=== PATIENT | male | born 1960 | race Caucasian/White ===

== ENCOUNTER 2024-03-30 08:56 | Outpatient (AMB) | payer OTHER, SELFPAY ==
--- NOTE | 2024-03-30 09:02 | A.SPINEOV_ITS ---
Vital Signs 03/30/24 09:09 Height 6 ft 6 in Weight 240 lb BMI 27.7 Intake Visit Reasons: Lumbar radiculopathy/weakness Intake Note: Mr. Villanueva is here today c/o Left leg pain radiates down to the knee. 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 He is a very nice 64-year-old gentleman presents to the office today for evaluation of a lumbar radiculopathy. He tells me that sometime in late December he was vacuuming and felt a severe back pain. A week or 2 later when he was making his bed it started again and this time gave him severe pain down his left leg. Speci fically radiating from his back down to his anterior thigh into his knee. He has tingling along the anterior aspect of his tibial region as well. The thing that became very pronounced was that he felt a abrupt weakness in his left leg. Specifically, his leg would give out on him when walking, and doing simple things like trying to lift his leg getting into the car he was unable to complete. The weakness has not changed or gotten worse since it originally started. He ultimately underwent an MRI that he had to pay for himself because insurance would not reimburse it. That showed herniated disc on the left at L3- 4 compressing the left L4 nerve root. He was referred to your office and underwent a left L3 transforaminal injection and that helped the back pain slightly but the leg pain and the weakness stayed the same. He was trialed on Motrin, gabapentin and Tylenol. He takes this cocktail routinely throughout the day and it does seem take the edge off a little bit but does not take the pain away completely. He had to start working from home because of the pain in the weakness. 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 He is very frustrated with his quality of life. He can not even do something simple like mowing the lawn. He is barely sleeping at this point only getting an hour to a night and he has to get up and move around before he can get back to sleep for another hour or 2. He has been repeating this process now for months. He is here today for surgical evaluation. PMH: He is history of hypertension, high cholesterol, recently diagnosed with a AAA that was 3.5 cm. He has a history of a renal cyst. Denies any history of heart disease, strokes, bleeding disorders, lung problems. He does smoke but has never had any issues COPD shortness of breath. Social hx: He smokes a little less than a pack a day, no alcohol or recreational drugs Medications: He takes baby aspirin, rosuvastatin and an antihypertensive which he could not remember the name. Allergies: None Physical exam: Has atrophy of the left leg specifically the quadriceps, he walks with an antalgic gait using a cane as a precaution because of his falls. He was unable to use his leg to step up a stool to get on the examining table. He has about 1 to 2/5 function of the left quadriceps. There is also some mild iliopsoas weakness as well. He has absent patellar reflex on the left. Patellar reflex on the right and the Achilles reflexes are all intact. Imaging review: Patient is a lumbar MRI done at the [facility] in February of 2024 showing disc degeneration, on the left at L3-4 there is a broad-based disc bulge causing significant narrowing of the lateral recess and compressing the left L4 nerve root. There are no other significant findings that I can see. Impression: 64-year-old male presents with what sounds like an L4 radiculopathy secondary to the broad-based disc herniation seen on the left at L3-4 on his imaging done last month. He has had severe pain going on now for a few months or more as well as a severe weakness in his left quadriceps with an absent patellar reflex. There is also atrophy of the quadriceps as well. The weakness started relatively early on in the process but has not gotten worse. It also has not improved at all either. He has not yet started physical therapy but is due to start in a few weeks to see if he can try to restrengthen it. I explained to him that he likely has nerve damage, and that the weakness in his quadriceps will likely be permanent with or without surgery. The indication for surgery here would be the leg pain. He still continues to meraz with severe pain, he is taking Tylenol, Motrin and gabapentin to try to get through the day. He still can not do normal things because of the pain and discomfort. He is unable to complete basic household tasks such as mowing his lawn and even going up and down the stairs is extremely painful. He has not sleeping much at all either. I told him that this is something Dr. Steven would usually offer left L3-4 microdiskectomy. We discussed the procedure at length. I will get back to the patient after I have a chance to review the imaging with Dr. Steven but I have tentatively put him on for April 19. Pt was given risk and benefits of surgery including but not limited to infection, hematoma , nerve injury,durotomy, weakness,bowel/bladder injury, persistent pain, persistent weakness, recurrent disc herniation as well as the option to continue with conservative treatment and patient wishes to proceed with surgery. Pt is aware they should stop their motrin, aspirin 7 days prior to surgery. All questions were answered to the best of our ability. If there is anything about this patients medical history that we have overlooked or concerns you have about us proceeding with surgery we would appreciate any input you can offer. Thank you for allowing us to care for your patient. The total time spent with this visit with this patient was 45 minutes reviewing history, physical exam, lumbar imaging review, and implementation of treatment plan or further diagnostic testing Endy Steven MD,PhD [facility] Coding Level of Care Code New Pt Level 4 (80505) Diagnoses Lumbar disc herniation M51.26
[2024-03-30 09:09] VITALS: BMI 27.7
== END 2024-03-30 10:14 | disposition home or self-care (01) ==
PROVIDERS: PCP Physician Assistant Medical; Referring Provider Physician Assistant; Visit Provider Physician Assistant
DX: M51.26 Other intervertebral disc displacement, lumbar region (principal)
CPT/HCPCS: 99204

== ENCOUNTER → 2024-03-30 08:56 | Outpatient (BNVA) | payer OTHER, SELFPAY | PROVIDERS: PCP Physician Assistant Medical; Visit Provider Physician Assistant ==

== ENCOUNTER → 2024-04-10 11:05 | Outpatient (BNV) | payer OTHER, SELFPAY | PROVIDERS: PCP Family Medicine; Visit Provider Internal Medicine Cardiovascular Disease | DX: Z01.810 Encounter for preprocedural cardiovascular examination (principal) | CPT/HCPCS: 93010 ==

== ENCOUNTER 2024-04-19 06:50 | Day surgery (SDC) | payer OTHER, SELFPAY ==
--- NOTE | 2024-04-10 | ECG_ITS ---
Test Reason : PRE OP Blood Pressure : / mmHG Vent. Rate : 099 BPM Atrial Rate : 099 BPM P-R Int : 158 ms QRS Dur : 098 ms QT Int : 350 ms P-R-T Axes : 073 086 047 degrees QTc Int : 449 ms Normal sinus rhythm Normal ECG No previous ECGs available Referred By: Caitlyn Alvarez Electronically Signed By:Fercho Santacruz
[2024-04-10 10:08] VITALS: BP 149/78; PULSE 97; RESP 20; O2SAT 98; BMI 26.3
--- NOTE | 2024-04-10 10:20 | HO.ANESPROP2 ---
HPI - Anesthesia Eval Consult details Narrative: 64yo M for L3-4 MicroLumbar discectomy, 04/19/24 No recent illness No CP/SOB within limits of pain. Prior to disc issues (12/2023) no limits with yardwork, walking AAA - incidental finding on MRI. Monitored by PCP. 3.5cm by US 03/2024 [facility] Active Problems Active Problems: All Active Problems Lumbar disc herniation (Acute) Past Medical History Medical History Heartburn Renal cyst AAA (abdominal aortic aneurysm) Elevated cholesterol HTN (hypertension) Lumbar radiculopathy Family History Family history of problems with anesthesia: No Surgical History Surgical History No pertinent past surgical history History of Problems with Anesthesia: No (No previous anesthesia) Social History Social History Are you a primary healthcare advisory services manager to a significant other at home: No Do you presently have visiting nurse or other home services: No Comment: counts correct Patient Tobacco Use Status: Current everyday Tobacco user Tobacco use type: Cigarette Cigarettes Per Day: 12 Years Smoked: 49 Meds Allergies Allergy/AdvReac Type Severity Reaction Status Date / Time No Known Allergies Allergy Verified 04/19/24 07:22 Home Medications ?Medication ?Instructions ?Recorded ?Confirmed ?Last Taken ?Type aspirin 81 mg tablet,delayed 81 mg PO DAILY 04/09/24 04/10/24 04/05/24 History release losartan 50 mg tablet 50 mg PO QAM 04/09/24 04/10/24 Unknown History omeprazole 20 mg capsule,delayed 20 mg PO TID PRN Heartburn 04/09/24 04/10/24 04/19/24 05:00 History release rosuvastatin 20 mg tablet 20 mg PO QAM 04/09/24 04/10/24 Unknown History vit C 250 mg-vit E 90 mg-zinc 40 1 tab PO BID 04/09/24 04/10/24 Unknown History mg-copper 1 [id number] capsule (PreserVision AREDS-2) acetaminophen 500 mg tablet 1,000 mg PO QID 04/10/24 04/10/24 Unknown History gabapentin 100 mg capsule 100 mg PO BID 04/10/24 04/10/24 Unknown History gabapentin 100 mg capsule 200 mg PO BEDTIME 04/10/24 04/10/24 Unknown History Exam Height,Weight and Vital Signs: Height 6 ft 6 in Weight 103.419 kg Last Vital Signs Pulse 97 04/10/24 10:08 Resp 20 04/10/24 10:08 BP 149/78 H 04/10/24 10:08 Pulse Ox 98 04/10/24 10:08 O2 Del Method Room Air 04/10/24 10:08 Pertinent Lab Results Pertinent Lab Results: Lab Results 04/10/24 Range/Units 10:53 WBC 8.7 (4.8-10.8) X10*3/uL RBC 5.31 (4.60-5.80) X10*6/uL Hgb 17.0 (14.0-18.0) g/dl Hct 47.7 (42.0-52.0) % MCV 89.8 (80.0-98.0) fL MCH 32.0 (27.0-33.0) pg MCHC 35.6 (31.0-36.0) g/dl RDW 12.6 (11.0-16.0) % Plt Count 110 L (160-400) X10*3/uL MPV 14.0 H (9.4-12.4) fL Absolute Nucleated RBC 0.000 (0.0-0.012) X10*3/uL Nucleated RBC % (auto) 0.0 (0.0-0.2) /100WBC Sodium 140 (135-145) mmol/L Potassium 3.9 (3.3-5.1) mmol/L Chloride 109 H (96-108) mmol/L Carbon Dioxide 22 (22-29) mmol/L Anion Gap 13 (12-20) BUN 16 (9-16) mg/dL Creatinine 0.85 (0.5-1.4) mg/dL Estim Creat Clear Calc 112.0 Estimated GFR > 60 Random Glucose 90 (60-115) mg/dL Calcium 10.5 H (8.4-10.2) mg/dL Narrative Narrative: EKG 04/2024 Vent. Rate : 099 BPM Atrial Rate : 099 BPM P-R Int : 158 ms QRS Dur : 098 ms QT Int : 350 ms P-R-T Axes : 073 086 047 degrees QTc Int : 449 ms Normal sinus rhythm Normal ECG No previous ECGs available Airway Mallampati Class: II TM Dist: >3cm Neck ROM: Full Loose/Missing/Broken Teeth: No (Right side permanent bridge, crowned molars , all stable) Heart: RRR Lungs: CTAB Assessment and Plan Assessment Anesthesia Assessment: Anesthesia Plan Discussed, Smoking Cess. Discussed and PAT Visit Final Anesthetic Review Family History of Problems with Anesthesia: No History of Problems with Anesthesia: No (No previous anesthesia)
[2024-04-10 11:16] LABS: Hematocrit 47.7 % (42.0-52.0); Mean Corpuscular HGB Conc 35.6 g/dl (31.0-36.0); Mean Corpuscular Volume 89.8 fL (80.0-98.0); Platelet Count 110 X10*3/uL (160-400); Red Blood Count 5.31 X10*6/uL (4.60-5.80); Red Cell Distribution Width 12.6 % (11.0-16.0); White Blood Count 8.7 X10*3/uL (4.8-10.8)
[2024-04-10 12:20] LABS: Anion Gap 13 (12-20); Blood Urea Nitrogen 16 mg/dL (9-16); Calcium 10.5 mg/dL (8.4-10.2); Carbon Dioxide 22 mmol/L (22-29); Chloride 109 mmol/L (96-108); Estimated Glomerular Filt Rate > 60; Glucose Random 90 mg/dL (60-115); Potassium 3.9 mmol/L (3.3-5.1); Sodium 140 mmol/L (135-145)
--- NOTE | ~2024-04-19 | FL_ITS ---
EXAMINATION: XR FLUOROSCOPY WITH IMAGES CLINICAL INFORMATION: L3-L4 discectomy left. COMPARISON: None available. TECHNIQUE: Fluoroscopy Supervised By: Dr. Steven. Fluoroscopy Time: 2.6 sec. Cumulative Dose: 1.3710 mGy. DAP: 0.5064 Gycm2. Images: 2. FINDINGS: Intraoperative fluoroscopy and spot films were performed during a procedure in the OR. A probe is present at the L3-L4 disc space. Please correlate with Dr. Steven's report for complete details. FL/FL guidance in OR IMPRESSION: Intraoperative fluoroscopy and spot films were obtained. Please see Dr. Steven's report for complete details.
[2024-04-19] MEDS: methocarbamoL 750 MG TABLET PO (07:27)
[2024-04-19] MEDS: Gabapentin 300 MG CAPSULE PO (07:27)
[2024-04-19 07:33] VITALS: BP 139/86; PULSE 91; RESP 15; TEMP 36.5; O2SAT 96
[2024-04-19 07:36] VITALS: BMI 25.0
--- NOTE | 2024-04-19 07:37 | MHC.SHP ---
Pre-Procedural Eval Section A - 24 Hr Update-Section A only Date of Service: 04/19/24 The patient is an INPATIENT: No Changes since office visit: No Cold of Flu in the past 2 weeks, No New Medical Problems, No Changes in Medication and No Patient answered all questions The patient has been examined within 24 hours of the surgical procedure. The History & Physical has been completed within 30 days and I have reviewed it.: Yes Section B - Complete if H&P > 30 days Chief Complaint: Other intervertebral disc displacement, lumbar reg Allergies: Allergies Allergy/AdvReac Type Severity Reaction Status Date / Time No Known Allergies Allergy Verified 04/19/24 07:22 Plan left L3-4 microdiskectomy Time Spent With Patient Time: Total time managing care of this patient today __5__ minutes.
[2024-04-19] MEDS: Lactated Ringers 1,000 ML 100 ML IVCONT (07:45)
--- NOTE | 2024-04-19 08:09 | HO.ANESPROP2 ---
[facility] Active Problems Active Problems: All Active Problems Lumbar disc herniation (Acute) Past Medical History Medical History Heartburn Renal cyst AAA (abdominal aortic aneurysm) Elevated cholesterol HTN (hypertension) Lumbar radiculopathy Functional capacity: independent ambulation Family History Family history of problems with anesthesia: No Surgical History Surgical History No pertinent past surgical history History of Problems with Anesthesia: No (No previous anesthesia) Social History Social History Are you a primary day care worker to a significant other at home: No Do you presently have visiting nurse or other home services: No Comment: uses cane occasionally Patient Tobacco Use Status: Current everyday Tobacco user Tobacco use type: Cigarette Cigarettes Per Day: 12 Years Smoked: 49 Use of substances other than those prescribed or required for medical reasons: No Have you been hit, kicked, punched, or otherwise hurt by someone within the past year? If so, by whom?: No Are you DNR?: No Advance Directives: No Advance Directives Information Provided: Yes (as above noted) Advance Directives on File: No Recently lost weight without trying: No Eating poorly because of decreased appetite: No Nutrition Risks: No Nutritional Risk Poor oral hygiene: No (crowned teeth-molars) Meds Allergies Allergy/AdvReac Type Severity Reaction Status Date / Time No Known Allergies Allergy Verified 04/19/24 07:22 Active Medications: Current Medications Albuterol Sulfate (Albuterol Sulfate (0.083%) 2.5 Mg/3 Ml Vial.Neb) 2.5 mg INHALE ONCE PRN PRN Reason: Shortness of Breath/Wheezing Lactated Ringer's (Lr) 1,000 mls @ 100 mls/hr IVCONT .Q10H GEORGIE Last Admin: 04/19/24 07:45 Dose: 100 mls/hr Home Medications ?Medication ?Instructions ?Recorded ?Confirmed ?Last Taken ?Type aspirin 81 mg tablet,delayed 81 mg PO DAILY 04/09/24 04/10/24 04/05/24 History release losartan 50 mg tablet 50 mg PO QAM 04/09/24 04/10/24 Unknown History omeprazole 20 mg capsule,delayed 20 mg PO TID PRN Heartburn 04/09/24 04/10/24 04/19/24 05:00 History release rosuvastatin 20 mg tablet 20 mg PO QAM 04/09/24 04/10/24 Unknown History vit C 250 mg-vit E 90 mg-zinc 40 1 tab PO BID 04/09/24 04/10/24 Unknown History mg-copper 1 [id number] capsule (PreserVision AREDS-2) acetaminophen 500 mg tablet 1,000 mg PO QID 04/10/24 04/10/24 Unknown History gabapentin 100 mg capsule 100 mg PO BID 04/10/24 04/10/24 Unknown History gabapentin 100 mg capsule 200 mg PO BEDTIME 04/10/24 04/10/24 Unknown History Exam Height,Weight and Vital Signs: Height 6 ft 6 in Weight 97.976 kg Last Vital Signs Temp 97.7 F 04/19/24 07:33 Pulse 91 04/19/24 07:33 Resp 15 04/19/24 07:33 BP 139/86 04/19/24 07:33 Pulse Ox 96 04/19/24 07:33 O2 Del Method Room Air 04/19/24 07:33 Pertinent Lab Results Pertinent Lab Results: Laboratory Tests 04/10/24 10:53 WBC 8.7 RBC 5.31 Hgb 17.0 Hct 47.7 MCV 89.8 MCH 32.0 MCHC 35.6 RDW 12.6 Plt Count 110 L MPV 14.0 H Absolute Nucleated RBC 0.000 Nucleated RBC % (auto) 0.0 Sodium 140 Potassium 3.9 Chloride 109 H Carbon Dioxide 22 Anion Gap 13 BUN 16 Creatinine 0.85 Estim Creat Clear Calc 112.0 Estimated GFR > 60 Random Glucose 90 Calcium 10.5 H Airway Mallampati Class: II TM Dist: >3cm Neck ROM: Full Heart: RRR Lungs: CTA Assessment and Plan Assessment Anesthesia Assessment: Anesthesia Plan Discussed and Smoking Cess. Discussed Final Anesthetic Review Family History of Problems with Anesthesia: No History of Problems with Anesthesia: No (No previous anesthesia) NPO: Yes ASA Class: II Final Preanesthetic Review: Meds/Allgs Chart Reviewed, Consent Obtained/Reviewed and Anes Risks/Benef Reviewed Patient Risk: Intermediate Procedure Risk: Low Anesthetic Plan Anesthetic Plan: GA Disposition: Standard PACU
--- NOTE | 2024-04-19 10:30 | P.CONAN_ITS ---
[facility] Active Problems Active Problems: All Active Problems (Updated 04/10/24 @ 10:04 by Suzie Rivera RN) Lumbar disc herniation (Acute) Past Medical History Medical History Heartburn Renal cyst AAA (abdominal aortic aneurysm) Elevated cholesterol HTN (hypertension) Lumbar radiculopathy Functional capacity: independent ambulation Family History Family history of problems with anesthesia: No Surgical History Surgical History No pertinent past surgical history History of Problems with Anesthesia: No (No previous anesthesia) Social History Social History Are you a primary medicare specialist to a significant other at home: No Do you presently have visiting nurse or other home services: No Comment: uses cane occasionally Patient Tobacco Use Status: Current everyday Tobacco user Tobacco use type: Cigarette Cigarettes Per Day: 12 Years Smoked: 49 Use of substances other than those prescribed or required for medical reasons: No Have you been hit, kicked, punched, or otherwise hurt by someone within the past year? If so, by whom?: No Are you DNR?: No Advance Directives: No Advance Directives Information Provided: Yes (as above noted) Advance Directives on File: No Recently lost weight without trying: No Eating poorly because of decreased appetite: No Nutrition Risks: No Nutritional Risk Poor oral hygiene: No (crowned teeth-molars) Meds Allergies Allergy/AdvReac Type Severity Reaction Status Date / Time No Known Allergies Allergy Verified 04/19/24 07:22 Active Medications: Current Medications Albuterol Sulfate (Albuterol Sulfate (0.083%) 2.5 Mg/3 Ml Vial.Neb) 2.5 mg INHALE ONCE PRN PRN Reason: Shortness of Breath/Wheezing Droperidol (Droperidol 5 Mg/2 Ml Vial) 0.625 mg IVPUSH ONCE PRN PRN Reason: intractable nausea Stop: 04/19/24 14:12 Droperidol (Droperidol 5 Mg/2 Ml Vial) 0.625 mg IVPUSH ONCE PRN PRN Reason: intractable nausea Stop: 04/19/24 16:29 Fentanyl (Fentanyl Citrate/Pf 100 Mcg/2 Ml Vial) 25 mcg IVPUSH Q5M PRN PRN Reason: Pain, Moderate(Pain Scale 4-6) Stop: 04/19/24 14:12 Fentanyl (Fentanyl Citrate/Pf 100 Mcg/2 Ml Vial) 25 mcg IVPUSH Q5M PRN PRN Reason: Pain, Moderate(Pain Scale 4-6) Stop: 04/19/24 16:29 Hydromorphone HCl (Hydromorphone Hcl 0.5 Mg/0.5 Ml Syringe) 0.25 mg IVPUSH Q5M PRN PRN Reason: Pain, Severe (Pain Scale 7-10) Stop: 04/19/24 14:12 Hydromorphone HCl (Hydromorphone Hcl 0.5 Mg/0.5 Ml Syringe) 0.25 mg IVPUSH Q5M PRN PRN Reason: Pain, Severe (Pain Scale 7-10) Stop: 04/19/24 16:29 Lactated Ringer's (Lr) 1,000 mls @ 100 mls/hr IVCONT .Q10H GEORGIE Last Admin: 04/19/24 07:45 Dose: 100 mls/hr Promethazine HCl (Promethazine Hcl 25 Mg/Ml Vial) 6.25 mg IM ONCE PRN PRN Reason: Nausea and Vomiting Stop: 04/19/24 14:12 Home Medications ?Medication ?Instructions ?Recorded ?Confirmed ?Last Taken ?Type aspirin 81 mg tablet,delayed 81 mg PO DAILY 04/09/24 04/10/24 04/05/24 History release losartan 50 mg tablet 50 mg PO QAM 04/09/24 04/10/24 Unknown History omeprazole 20 mg capsule,delayed 20 mg PO TID PRN Heartburn 04/09/24 04/10/24 04/19/24 05:00 History release rosuvastatin 20 mg tablet 20 mg PO QAM 04/09/24 04/10/24 Unknown History vit C 250 mg-vit E 90 mg-zinc 40 1 tab PO BID 04/09/24 04/10/24 Unknown History mg-copper 1 [id number] capsule (PreserVision AREDS-2) acetaminophen 500 mg tablet 1,000 mg PO QID 04/10/24 04/10/24 Unknown History gabapentin 100 mg capsule 100 mg PO BID 04/10/24 04/10/24 Unknown History gabapentin 100 mg capsule 200 mg PO BEDTIME 04/10/24 04/10/24 Unknown History Exam Height,Weight and Vital Signs: Height 6 ft 6 in Weight 97.976 kg Last Vital Signs Temp 97.7 F 04/19/24 07:33 Pulse 91 04/19/24 07:33 Resp 15 04/19/24 07:33 BP 139/86 04/19/24 07:33 Pulse Ox 96 04/19/24 07:33 O2 Del Method Room Air 04/19/24 07:33 Pertinent Lab Results Pertinent Lab Results: Laboratory Tests 04/10/24 10:53 WBC 8.7 RBC 5.31 Hgb 17.0 Hct 47.7 MCV 89.8 MCH 32.0 MCHC 35.6 RDW 12.6 Plt Count 110 L MPV 14.0 H Absolute Nucleated RBC 0.000 Nucleated RBC % (auto) 0.0 Sodium 140 Potassium 3.9 Chloride 109 H Carbon Dioxide 22 Anion Gap 13 BUN 16 Creatinine 0.85 Estim Creat Clear Calc 112.0 Estimated GFR > 60 Random Glucose 90 Calcium 10.5 H Airway Mallampati Class: II TM Dist: >3cm Neck ROM: Full Heart: RRR Lungs: CTA Assessment and Plan Assessment Anesthesia Assessment: Anesthesia Plan Discussed and Smoking Cess. Discussed Final Anesthetic Review Family History of Problems with Anesthesia: No History of Problems with Anesthesia: No (No previous anesthesia) NPO: Yes ASA Class: II Final Preanesthetic Review: Meds/Allgs Chart Reviewed, Consent Obtained/Reviewed and Anes Risks/Benef Reviewed Patient Risk: Low Procedure Risk: Low Anesthetic Plan Anesthetic Plan: GA Disposition: Standard PACU
--- NOTE | 2024-04-19 11:01 | W.PM.OPN ---
Operative Note Operative Note Date of Service: 04/19/24 Narrative: Preoperative diagnosis: Left L4 lumbar radiculopathy due to disc herniation with pain and weakness Postoperative diagnosis: Same Procedure: Left L3-4 lumbar microdiskectomy with microscope Surgeon: Leonard Steven MD, PhD Belt Conveyor Drier: fatmata Patino This 64-year-old male suffering from left quadriceps weakness and pain. An MRI shows a small disc bulge compressing the left L4 nerve root. The patient was offered a lumbar microdiskectomy to decompress the nerve root. The procedure complications were explained. The patient was consented. The patient was brought to the operating room and endotracheally intubated. The patient was turned in a prone position on the Henri frame. Prepping and draping was done followed by time-out. A mid lumbar incision was made followed by release of the paravertebral muscles on the left side to expose the L3-4 interspace. An intraoperative x-rays obtained to confirm the correct level. The microscope was brought in. A left L3 laminotomy was done followed by opening of the flavum ligament. The L4 nerve root was identified and retracted medially to expose the L3-4 disc space. No clear disc herniation was present. I did do an annulotomy and I was able to express few very small fragments. The disc space was inspected and any residual disc fragments were removed. This resulted in an excellent decompression of the [] nerve root. Hemostasis was done. The microscope was removed. Marcaine was injected intramuscularly.The incision was closed in two layers. Steri-Strips used to approximate seizure. An op-site were taken there was used to cover the incision. All sponge and needle counts were correct. Patient was extubated and transported in stable condition to recovery room. this procedure was done with the aid of a physician assistant professor of theater who performed the initial exposure until the microscope was brought in and performed the closure of the incision. Anesthesia: General Blood loss: 10 mL Complications: None Specimen: None Surgical time: 40 minutes Disposition: Discharge home
--- NOTE | 2024-04-19 11:09 | PM.DS ---
DS: Providers Provider Date of Service: 04/19/24 Date of discharge: 04/19/24 Primary care physician: William Perez MD Admitting clinician: Leonard Steven DS: Diagnosis Discharge Diagnosis (1) Lumbar disc herniation: Status: Acute DS: Summary Time Attestation Discharge Coordination Time (in mins): 6 Quality: Safe Use of Opioids Does Pt have an Active Cancer Diagnosis on the Problem List?: No Quality: Stroke Does the patient have a stroke diagnosis?: No Physical Exam Vital Signs: Vital Signs: Last Vital Signs Temp 97.7 F 04/19/24 07:33 Pulse 91 04/19/24 07:33 Resp 15 04/19/24 07:33 BP 139/86 04/19/24 07:33 Pulse Ox 96 04/19/24 07:33 O2 Del Method Room Air 04/19/24 07:33 BMI result Body Mass Index 25.0 Discharge Plan Discharge Patient Disposition: Home, Self-Care Referrals: Willaim Perez MD [Primary Care Provider] - 1 Week Discharge Medications: New docusate sodium [Colace] 100 mg capsule 100 mg PO BID Qty: 20 0RF oxycodone 5 mg tablet 5 mg PO Q4H PRN (Reason: pain) Qty: 20 0RF Rx Instructions: Partial Fill upon patient request. Continued losartan 50 mg tablet 50 mg PO QAM omeprazole 20 mg capsule,delayed release(DR/EC) 20 mg PO TID PRN (Reason: Heartburn) rosuvastatin 20 mg tablet 20 mg PO QAM PreserVision AREDS-2 250-90-40-1 mg Capsule 1 tab PO BID gabapentin 100 mg Capsule 100 mg PO BID gabapentin 100 mg Capsule 200 mg PO BEDTIME acetaminophen 500 mg Tablet 1,000 mg PO QID Held aspirin 81 mg Tablet,Delayed Release (Dr/Ec) 81 mg PO DAILY Hold Instructions: Resume on 04/26/24. resume 7 days after surgery Discharge Orders: Discharge Order (Routine); Ordered 04/19/24 Ordered By: Endy Mac Diet: Advance to usual diet Activity on Discharge: As tolerated Activity Restrictions/Additional Instructions: After your spinal surgery we ask you to observe the following restrictions/guidelines: Activity: It is normal to feel some discomfort as you increase your activity, but that will improve with time. We ask you avoid heavy lifting or acitivities that cause pain. As a general rule, 8lbs is a safe limit for lifting right after surgery. Walk as much as you feel comfortable but not to exhaustion. You will feel extra tired the first few days after surgery. Stay well hydrated. It is OK to walk up and down stairs You may return to driving when you are off narcotics (such as vicodin, oxycodone, dilaudid, etc), and you are back to normal functional capacity. If you have any concerns please check with office before driving. Return to work is specific to each patient and each surgery, so please speak with your doctor/PA at first follow up. Please bring paperwork such as FMLA at that time if you need it filled out. Medications: you can resume aspirin 7 days after surgery For optimum pain control, it is best to start with a combination of 500 mg of Tylenol every 4 hours with 600 mg of Motrin every 8 hours, and use narcotics as needed in between for breakthrough pain. We will give you a short supply of narcotics after surgery (usually one weeks worth). If you need more please call the office but do not use more than prescribed. You will need to give our office 48 hours notice if you need narcotics refilled and we do not fill narcotics on weekends or evenings. If you are on a narcotic, it is a good idea to take a stool softener such as colace or senna to avoid constipation If you take blood thinner such as aspirin, Plavix, Coumadin, Effient, Eliquis etc for conditions such as Afib, DVT, Pulmonary embolus, coronary disease, stents etc please speak with your surgeon about specific details as to when you can resume these medications. You can resume NSAIDs on post op day 1 (eg: Motrin, Naproxen, etc). Follow up: Please call the office, , after surgery to arrange a 3 week follow up for wound check. Wound Care: You may remove your dressing on the first day after surgery. ?You may ?leave open to air. Please do not remove the steri strips underneath. they will fall off on their own in one week. IT IS NORMAL FOR THE WOUND TO OOZE OR BE BLOODY FOR A FEW DAYS AFTER SURGERY. ?IF THIS HAPPENS JUST PLACE NEW DRESSING OVER IT TO AVOID STAINING CLOTHES. You may shower on post op day # 1 We ask that you do not let the water soak the wound. If it does get wet, just towel dry lightly. Please do not scrub your incision or place any type of chemical/ointment on the wound. No tub baths, pools or jacuzzis for one month. If you have any leaking or redness from your wound, or fevers, please call office Print Language: [place]
[2024-04-19 11:25] VITALS: BP 133/78; PULSE 89; RESP 16; TEMP 36.1; O2SAT 96
[2024-04-19 11:30] VITALS: BP 136/77; PULSE 89; RESP 16; O2SAT 94
[2024-04-19 11:35] VITALS: BP 141/78; PULSE 84; RESP 16; O2SAT 96
[2024-04-19 11:40] VITALS: BP 130/83; PULSE 82; RESP 16; O2SAT 97
[2024-04-19 11:55] VITALS: BP 134/82; PULSE 82; RESP 16; TEMP 36.1; O2SAT 97
--- NOTE | 2024-04-19 13:34 | PC.NURSE ---
PATIENT WAS DISCHARGED HOME AND BROUGHT DOWNSTAIRS TO HIS RIDE VIA WHEELCHAIR BY HOSPITAL STAFF. PATIENT NOTED TO BE BLEEDING FROM HIS SURGICAL SITE SO PATIENT BROUGHT BACK TO PACU. THE LENS EDGER CHANGED THE DRSG AND IT WAS EXPLAINED THAT THIS IS NORMAL . PT BROUGHT BACK TO HIS RIDE FOR DC HOME.
--- NOTE | 2024-04-19 15:49 | HO.POSTANES ---
Post Anesthesia Evaluation Post Anesthesia Evaluation Date of Service: 04/19/24 Vital Signs: Vital Signs Temp Pulse Resp BP Pulse Ox O2 Del Method 04/19/24 11:55 97 F 82 16 134/82 97 Room Air 04/19/24 11:40 82 16 130/83 97 Room Air 04/19/24 11:35 84 16 141/78 H 96 Room Air 04/19/24 11:30 89 16 136/77 94 Room Air 04/19/24 11:25 97 F 89 16 133/78 96 Room Air 04/19/24 07:33 97.7 F 91 15 139/86 96 Room Air Anesthesia: General Endotracheal-GETA Mental Status: Awake Pain Control: Satisfactory Nausea/Vomiting: None Hydration: Adequate Anesthesia-Related Issues: No Anes. Related Issues
== END 2024-04-19 12:50 | disposition home or self-care (01) ==
PROVIDERS: Nurse Practitioner; PCP Family Medicine; Visit Provider Neurological Surgery
PROC: (CPT 63030; principal; 2024-04-19 09:50)
DX: M51.26 Other intervertebral disc displacement, lumbar region (principal); M54.16 Radiculopathy, lumbar region; M79.652 Pain in left thigh; R26.89 Other abnormalities of gait and mobility; I10 Essential (primary) hypertension; E78.00 Pure hypercholesterolemia, unspecified; I71.40 Abdominal aortic aneurysm, without rupture, unspecified; Z79.82 Long term (current) use of aspirin; Z79.899 Other long term (current) drug therapy; F17.210 Nicotine dependence, cigarettes, uncomplicated
CPT/HCPCS: 63030; 36415; 80048; 85027; 93005; J0131; J0690; J1100; J1885; J2250; J2405; J2704; J3010

== ENCOUNTER → 2024-04-19 06:50 | Outpatient (BNV) | payer OTHER, SELFPAY | PROVIDERS: PCP Family Medicine; Visit Provider Neurological Surgery | DX: M51.26 Other intervertebral disc displacement, lumbar region (principal) | CPT/HCPCS: 63030; 99499 ==

== ENCOUNTER 2024-05-14 11:18 | Outpatient (AMB) | payer OTHER, SELFPAY ==
--- NOTE | 2024-05-14 11:28 | A.SPINEOV_ITS ---
Intake Visit Reasons: 1st post op Intake Note: Mr. Villanueva is here today for his 1st post-op visit. Roaster Helper Required: No Allergies No Known Allergies Allergy (Verified 05/14/24 11:28) Assessment & Plan Assessment & Plan (1) S/P lumbar microdiscectomy: Code(s): Z98.890 - Other specified postprocedural states Category: Surgical Plan Procedure: Left L3-4 lumbar microdiskectomy Andreas comes in today for his 1st postoperative visit. He reports that he still as significant pain in his left knee, and is unable to extend his left leg out. He also continues to have significantly decreased strength with left hip flexion. These are preoperative findings that have persisted since surgery. Thankfully, the severe pain in his low back and shooting pains down his left leg have largely resolved. We discussed the postoperative healing course and the outcomes of nerve damage. It is unclear if his weakness will resolve / improve. He requested being sent to physical therapy for strength training/walking. Andreas has 0/5 strength with left-sided knee extension. 3/5 strength with left- sided iliopsoas testing. The rest of his lower extremity strength is 5/5 intact. No new neurological deficits. Patient is able to ambulate well, rises from a seated position without difficulty. Incision site is closed, well healing, with no signs of drainage. We will follow-up with the patient in 6 weeks for their 2nd postoperative visit. I would like him follow up with Dr. Steven to discuss more in depth his continued weakness. He will have a few courses of physical therapy under his belt by the time he sees Dr. Steven, so we will have a good idea of his weakness is improving or not. In addition to sending him to physical therapy I ordered him a course of gabapentin to help with the persistent left knee pain. Vic Steven MD,PhD [facility] [place] Orders: Orders PT Evaluation and Treatment Today Z98.890 - Other specified postprocedural states Medications: New gabapentin 100 mg PO TID 60 caps 0RF NERVE PAIN Coding Level of Care Code Global (88065) Diagnoses S/P lumbar microdiscectomy Z98.890
== END 2024-05-14 11:58 | disposition home or self-care (01) ==
PROVIDERS: PCP Family Medicine; Visit Provider Physician Assistant
DX: Z98.890 Other specified postprocedural states (principal)
CPT/HCPCS: 99024

== ENCOUNTER → 2024-05-14 11:18 | Outpatient (BNVA) | payer OTHER, SELFPAY | PROVIDERS: PCP Family Medicine; Visit Provider Physician Assistant ==

== ENCOUNTER 2024-06-29 14:29 | Outpatient (AMB) | payer OTHER, SELFPAY ==
--- NOTE | 2024-06-29 14:36 | HO.SPINEOV ---
Intake Visit Reasons: 2nd post op Intake Note: Mr. Villanueva is here today for his 2nd post-op visit. Occupational Health Technician Required: No Allergies No Known Allergies Allergy (Verified 06/29/24 14:46) Assessment & Plan Assessment & Plan (1) S/P lumbar microdiscectomy: Code(s): Z98.890 - Other specified postprocedural states Category: Medical Plan Dear colleague, on 04/21/2024 I saw for 2nd postoperative visit Andreas Villanueva. He is status post L3-4 lumbar microdiskectomy for left leg pain and weakness. The radiating pain down his leg is gone. He continues to complain of pain around his left knee. His deep paresis has significantly improved to a grade 3-4/5. Physical therapy wants to continue to further improve his strength, which I will wholeheartedly support. I would like to follow-up with him in 6 months to see how far his weakness is improving. Coding Level of Care Code Global (53440) Diagnoses S/P lumbar microdiscectomy Z98.890
== END 2024-06-29 15:02 | disposition home or self-care (01) ==
PROVIDERS: PCP Family Medicine; Visit Provider Neurological Surgery
DX: Z98.890 Other specified postprocedural states (principal)
CPT/HCPCS: 99024

== ENCOUNTER → 2024-06-29 14:29 | Outpatient (BNVA) | payer OTHER, SELFPAY | PROVIDERS: PCP Family Medicine; Visit Provider Neurological Surgery ==

== ENCOUNTER 2024-08-22 07:45 | Outpatient (REF) | payer OTHER, SELFPAY ==
--- NOTE | 2024-08-22 07:49 | EMG_ITS ---
Chief complaint: Sudden onset of left knee pain in 12/2023. Thought to be related to a lumbar disc herniation, underwent L3-4 microdiskectomy in April. Continues to have pain on left thigh and knee, and numbness on left leg and foot. Weakness on left leg. Reason for referral: Evaluate for radiculopathy Referred by: Chad ZAMBRANO Procedure done: Bilateral lower extremity NCS/EMG Precautions and/or limitations: Previous lumbar surgery - for this reason paraspinal EMG examination deferred, not reliable to show accurate diagnostic evidence evidence The limb temperature was monitored continuously and remained between 32-36 degrees C during the performance of the NCS. Nerve Conduction Studies Anti Sensory Summary Table ?Stim Site NR Onset (ms) Norm Onset (ms) Peak (ms) Norm Peak (ms) O-P Amp (?V) Norm O-P Amp Site1 Site2 Delta-0 (ms) Dist (cm) Charles (m/s) Norm Charles (m/s) Left Sural Anti Sensory (Lat Mall) Calf NR <4.0 >5.0 Calf Lat Mall 14.0 Right Sural Anti Sensory (Lat Mall) Calf NR <4.0 >5.0 Calf Lat Mall 14.0 Motor Summary Table ?Stim Site NR Onset (ms) Norm Onset (ms) O-P Amp (mV) Norm O-P Amp iAmp (mV) Amp (1st) (%) Site1 Site2 Delta-0 (ms) Dist (cm) Charles (m/s) Norm Charles (m/s) Left Peroneal Motor (Ext Dig Brev) Ankle ? 5.0 <4.0 0.8 >2.5 0.8 100.0 Ankle Ext Dig Brev 5.0 0.0 B Fib ? 13.8 0.7 0.6 87.5 B Fib Ankle 8.8 39.5 45 >40 Poplt ? 14.9 0.7 0.7 87.5 Poplt B Fib 1.1 4.5 41 >40 Right Peroneal Motor (Ext Dig Brev) Ankle ? 5.6 <4.0 1.5 >2.5 2.1 100.0 Ankle Ext Dig Brev 5.6 0.0 B Fib ? 15.5 1.5 1.9 100.0 B Fib Ankle 9.9 39.5 40 >40 Poplt ? 16.5 1.4 1.8 93.3 Poplt B Fib 1.0 6.0 60 >40 Left Tibial Motor (Abd Gallego Brev) Ankle ? 4.7 <5 2.4 >2.5 3.3 100.0 Ankle Abd Gallego Brev 4.7 0.0 Knee ? 17.2 1.6 2.0 66.7 Knee Ankle 12.5 45.0 36 >40 Right Tibial Motor (Abd Gallego Brev) Ankle ? 3.5 <5 3.9 >2.5 5.7 100.0 Ankle Abd Gallego Brev 3.5 0.0 Knee ? 16.9 2.8 3.8 71.8 Knee Ankle 13.4 47.0 35 >40 EMG ?Side Muscle Nerve Root Ins Act Fibs Psw Amp Dur Poly Recrt Int Pat Comment Right AbdHallucis MedPlantar S1-2 Nml Nml Nml Nml Nml 0 Nml Complete Right AntTibialis Dp Br Peron L4-5 Nml Nml Nml Nml Nml 0 Nml Complete Right PostTibialis Tibial L5, S1 Nml Nml Nml Nml Nml 0 Nml Complete Right MedGastroc Tibial S1-2 Nml Nml Nml Nml Nml 0 Nml Complete Right VastusMed Femoral L2-4 Nml Nml Nml Nml Nml 0 Nml Complete Left AbdHallucis MedPlantar S1-2 Nml Nml Nml Nml Nml 0 Nml Complete Left AntTibialis Dp Br Peron L4-5 Nml Nml Nml Nml Nml 0 Nml Complete Left PostTibialis Tibial L5, S1 Nml Nml Nml Nml Nml 0 Nml Complete Left MedGastroc Tibial S1-2 Nml Nml Nml Nml Nml 0 Nml Complete Left VastusMed Femoral L2-4 Nml Nml Nml could not activate, atrophy Left RectFemoris Femoral L2-4 Nml Nml Nml could not activate, atrophy Left BicepsFemS Sciatic L5-S1 Nml Nml Nml Nml Nml 0 Nml Complete Left GluteusMed SupGluteal L4-S1 Nml Nml Nml Nml Nml 0 Nml Complete FINDINGS: Left peroneal nerve showed very small amplitudes/almost absent. Left tibial nerve showed normal distal latency, small amplitude and slow conduction velocity. Right peroneal nerve showed prolonged distal latency, small amplitude and normal conduction velocity. No conduction block across the fibular neck. Right tibial nerve showed normal distal latency, normal amplitude and slow conduction velocity. Bilateral sural nerves no response. Concentric needle EMG was performed in selected muscles of the bilateral lower extremity. Study did not reveal signs of electric abnormalities as shown in the table above. However, noted weakness and inability to activate quadricep muscles (rectus and vastus). Noted atrophy of these muscles and a slight bulge distally near the knee. IMPRESSION: 1. This is an abnormal study. 2. 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 3. There are no definite findings to suggest lumbar radiculopathy. 4. Focal atrophy of left quadriceps muscles noted, corresponding to weakness on left knee extension. Differential diagnosis include focal tear of quadriceps; left femoral neuropathy not completely ruled out. CLINICAL COMMENT: Suggest further evaluation of left quadriceps muscle atrophy. May need further imaging such as MRI to rule out a focal tear. Further clinical correlation recommended, such as workup to rule out etiology for neuropathy Thank you for your kind referral. Stephanie Emmanuel MD, MICHELLE Board Certified, [place] Board of Physical Medicine and Rehabilitation (ABPMR) Board Certified, [place] Board of Electrodiagnostic Medicine (ABEM) CODIN [id number] x 2 MTDD
== END 2024-08-22 07:46 | disposition home or self-care (01) ==
LOC: HO.NEURO 07:45
PROVIDERS: PCP Family Medicine; Visit Provider Physician Assistant
DX: M25.562 Pain in left knee (principal); M54.16 Radiculopathy, lumbar region; R53.1 Weakness; R47.9 Unspecified speech disturbances
CPT/HCPCS: 95886; 95909

== ENCOUNTER → 2024-08-22 07:49 | Outpatient (BNV) | payer OTHER, SELFPAY | PROVIDERS: PCP Family Medicine; Visit Provider Physical Medicine & Rehabilitation | DX: G62.9 Polyneuropathy, unspecified (principal); M62.552 Muscle wasting and atrophy, not elsewhere classified, left thigh | CPT/HCPCS: 95886; 95909 ==

== ENCOUNTER 2024-12-28 11:20 | Outpatient (AMB) | payer OTHER, SELFPAY ==
--- NOTE | 2024-12-28 11:24 | HO.SPINEOV ---
Intake Visit Reasons: 6 months f/up Intake Note: Mr. Villanueva is here today for his 6 month F/u. Security Threat Analyst Required: No Allergies No Known Allergies Allergy (Verified 12/28/24 11:31) Assessment & Plan Assessment & Plan (1) S/P lumbar microdiscectomy: Code(s): Z98.890 - Other specified postprocedural states Category: Surgical Plan Dear colleague, On 12/28/2024 I saw for final follow-up Andreas Villanueva. He underwent an L3-4 lumbar microdiskectomy for left-sided leg pain and profound weakness. Postoperatively, the weakness has gradually improved but remains persistent. The pain down the leg is much improved although he does have occasional flare-ups. We reviewed a new MRI of the lumbar spine with gadolinium which shows expected postoperative changes but no lesions that require surgery. I told the patient that unfortunately he presented with nerve damage due to the disc herniation which explains the continue his neurological deficits. He fully understood my explanation. I discharged him from further follow-up. Thank you for allowing me take care of your patient. Leonard Steven MD, PhD Spine Fellowship Trained Neurosurgeon Director, [facility] [place] [facility] Coding Level of Care Code Est Pt Level 2 (39595) Diagnoses S/P lumbar microdiscectomy Z98.890
== END 2024-12-28 12:07 | disposition home or self-care (01) ==
LOC: HO.HNS 11:21
PROVIDERS: PCP Family Medicine; Visit Provider Neurological Surgery
DX: Z98.890 Other specified postprocedural states (principal)
CPT/HCPCS: 99212

== ENCOUNTER → 2024-12-28 11:20 | Outpatient (BNVA) | payer OTHER, SELFPAY | PROVIDERS: PCP Family Medicine; Visit Provider Neurological Surgery ==